=== PATIENT | female | born 1960 | race African-American/Black ===

== ENCOUNTER 2018-03-10 12:45 | Emergency (ER) | payer OTHER ==
[~2018-03-10] VITALS: Ht 160 cm; Wt 74.8 kg
[~2018-03-10 12:45] MED LIST: GLUCOTROL10 MG PO; NOVOLIN
== END 2018-03-10 23:24 | disposition home or self-care (01) ==
LOC: ER 12:45
DX: E11.649 Type 2 diabetes mellitus with hypoglycemia without coma (principal)